=== PATIENT | male | born 1995 | race Caucasian/White ===

== ENCOUNTER → 2022-12-31 | Outpatient (CLI) | payer BC ==
--- NOTE | 2022-12-31 21:52 | CT ---
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 TECHNIQUE: Noncontrast axial views of the paranasal sinuses were obtained. Coronal and sagittal refor matted images were obtained. Towards the compartment is systolic in dictation FINDINGS: PARANASAL SINUSES: Mild mucosal thickening within the ethmoid air cells. Scattered trace mucosal thickening within the m axillary sinuses. Frontal sinuses are hypoplastic. Sphenoid sinuses well pneumatized. There is no air-fluid level. Reactive carmen- osteogenesis is not seen. There is no destruction of the osseous gonzalez of the paranasal sinuses. THE NASAL CAVITY: The osteomeatal complexes are patent. There is slight leftward nasal septal deviation. The imaged brain and orbits are normal in appearance. Mastoid air cells and middle ear cavities are well pneumatized. Reformatted images confirm above findings. IMPRESSION: Trace to mild chronic paranasal sinus disease within the maxillary sinuses and ethmoid air cells, res pectively. Slight leftward nasal septal deviation.
== END | disposition home or self-care (01) ==
LOC: RADCTMAIN 11:41
PROVIDERS: ATTEND Otolaryngology
DX: D16.4 Benign neoplasm of bones of skull and face (principal); J32.8 Other chronic sinusitis; J32.0 Chronic maxillary sinusitis; J32.2 Chronic ethmoidal sinusitis; J34.2 Deviated nasal septum
CPT/HCPCS: 70486